=== PATIENT | female | born 2000 ===

== ENCOUNTER 2022-05-01 22:29 | Emergency (ER) | payer SELFPAY ==
[~2022-05-01] VITALS: Ht 167.6 cm; Wt 50.0 kg
[2022-05-01] MEDS ORDERED: DOXY100T28 PO (23:51)
[2022-05-01] MEDS ORDERED: HYDR453.3 TP (23:51)
[2022-05-01] MEDS ORDERED: CETI10TA6 PO (23:51)
[2022-05-01 23:55] VITALS: BP 130/92
== END 2022-05-01 23:57 | disposition home or self-care (01) ==
LOC: ER 22:41
DX: L73.9 Follicular disorder, unspecified (principal); L25.9 Unspecified contact dermatitis, unspecified cause; R03.0 Elevated blood-pressure reading, without diagnosis of hypertension
CPT/HCPCS: 99283